=== PATIENT | female | born 1940 | race Caucasian/White ===

== ENCOUNTER → 2016-05-11 | Outpatient (CLI) | payer MEDICARE, OTHER ==
[~2016-05-11] MED LIST: ASPIRIN (CHILDR81 MG PO; BACTRIM DS1 TAB PO; CANNABIS OIL SL; CINNAMON500 MG PO; COLESTIPOL HCL1 GM PO; COMPAZINE 10MG10 MG PO; CRANBERRY400 M1 PO; DULCOLAX STOOL100 MG PO; EFFEXOR XR150 MG PO; EFFEXOR XR75 MG PO; FLONASE 50 MCG/16 GM NOSE; IMODIUM2 MG PO; KEFLEX500 MG PO; KLONOPIN0.5 MG PO; LEVOTHROID (SY88 MCG PO; LIPITOR40 MG PO; LOMOTIL1 TAB PO; MYRBETRIQ50 MG PO; NITROFURANTOIN50 MG PO; NORCO 5-325 TA1 EACH PO; NOVOLOG FL100 UNIT/1 SUB-Q; NOVOLOG100 UNIT/M SUB-Q; PLAVIX75 MG PO; PREMARIN0.3 MG PO; PRENATAL MULTI1 EAC3 PO; REFRESH PLUS1 EACH OPHTH; RESTASIS1 EACH OPHTH; SINGULAIR10 MG PO; SYSTANE 0.3-0.1 EACH OPHTH; SYSTANE 0.3-0.440 ML OPHTH; TEARS AGAIN EYE5 GM OPHTH; TOUJEO SOL300 UNIT/1 SUB-Q; TYLENOL ARTHRI650 MG PO; VITAMIN B-1000 MCG/M SUB-Q; VITAMIN D35000 UNI1 PO; ZYRTEC10 MG PO
[2016-05-11 12:54] LABS: HEMATOCRIT 39.6 % (33.0-46.0); HEMOGLOBIN 12.7 g/dL (10.0-15.0); MCH 30.2 pg (27.0-34.0); MCHC 32.1 gm/dL (32.0-36.5); MCV 94.3 fl (83.0-98.0); MPV 10.7 fl (9.4-12.4); RBC 4.2 M/uL (3.50-5.50); WBC 3.2 K/uL (4.0-11.0)
[2016-05-11 13:06] LABS: INR - (THERAPEUTIC) 1.1 (0.9-1.1); PROTIME 11.4 SECONDS (9.6-11.1)
[2016-05-11 13:07] LABS: ALBUMIN 3.6 gm/dL (3.5-5.0); ANION GAP 12.5 (10.0-19.0); BLOOD UREA NITROGEN 12 mg/dL (6-24); CHLORIDE 105 mMol/L (96-110); CO2 25 mMol/L (22-32); CREATININE 0.9 mg/dL (0.5-1.1); PHOSPHORUS 3.7 mg/dL (2.5-4.9); POTASSIUM 4.5 mMol/L (3.7-5.1); SODIUM 138 mMol/L (135-145)
[2016-05-11 13:10] LABS: ESTIMATED GFR (MDRD EQUATION) > 60
== END | disposition disaster alternative care site (69) ==
LOC: GOPD 05-05 10:30 → GRAD 11:45 → GOPD 12:00
PROVIDERS: Internal Medicine Critical Care Medicine
PROC: 0BBJ3ZX Excision of Left Lower Lung Lobe, Percutaneous Approach, Diagnostic (ICD-10-PCS; principal; 2016-05-11)
DX: R91.8 Other nonspecific abnormal finding of lung field (principal); J84.10 Pulmonary fibrosis, unspecified; K31.84 Gastroparesis; E11.43 Type 2 diabetes mellitus with diabetic autonomic (poly)neuropathy; Z79.4 Long term (current) use of insulin; Z87.891 Personal history of nicotine dependence
CPT/HCPCS: J2001; J2250; J3010

== ENCOUNTER 2016-05-19 12:40 | Inpatient (IN) | payer MEDICARE, OTHER ==
[~2016-05-19] VITALS: Ht 162.6 cm; Wt 60.2 kg
--- NOTE | ~2016-05-19 | CON ---
[facility] 76 Y [address] ROOM: [place] [address] LOCATION: GPCU ADMIT DATE: 05/19/2016 Consultation DISCHARGE DATE: FAMILY PHYSICIAN: Manuel Day MD ATTENDING PHYSICIAN: REMIGIO ESQUEDA DATE OF CONSULTATION: 05/20/2016 REFERRING PHYSICIAN: SARAH BRANDON MD CHIEF COMPLAINT: Amaurosis fugax. HISTORY OF PRESENT ILLNESS: A 76-year-old lady with a past medical history of hypertension,insulin- dependent diabetes, history of CVA, and carotid stenosis as well as severe emphysema, who was scheduled to undergo right carotid end arterectomy on June 02, 2016. Was at home ironing her clothes, when she has noticed blackening of her vision in the right eye. She waited until morning and called Vascular Surgery. She was brought to the OR after a CTA which did reveal right internal carotid artery stenosis about 90%. She underwent carotid endarterectomy. I saw her postoperatively. On my encounter, she is alert and oriented. She did endorse that she continues to have a black spot in her right eye and numbness on the right side of the face. She denied having any chest pain, any shortness of breath, any difficulty breathing, any palpitation, any abdominal pain, any extremity swelling, PND or orthopnea. On further inquiry, she denied having any burning on urination at this point. REVIEW OF SYSTEMS: All other systems were reviewed and were negative, except what is mentioned in the HPI. ALLERGIES: THE PATIENT IS ALLERGIC TO PENICILLIN. SOCIAL HISTORY: The patient quit smoking 30 years ago. No alcohol or drug use. FAMILY HISTORY: Family history is significant for leukemia in mother and in 4 of her uncles. Dad had Alzheimer's. PAST MEDICAL HISTORY: Insulin-dependent diabetes; history of gastroparesis, status post gastrectomy; severe emphysema; history of atrial fibrillation, not on any anticoagulation; history of CVA; lung nodule. PATIENT'S NAME: ELIJAH DHILLON [facility] AGE: 76 Y [address] ROOM: [place] [address] LOCATION: GPCU ADMIT DATE: 05/19/2016 Consultation DISCHARGE DATE: FAMILY PHYSICIAN: Manuel Day MD ATTENDING PHYSICIAN: REMIGIO ESQUEDA MEDICATIONS: Please see MAR. PHYSICAL EXAMINATION: VITAL SIGNS: 136/76, 16, 101, afebrile. GENERAL: In no acute distress. Alert and oriented x3. HEENT: Head, atraumatic and normocephalic. Eyes are nonicteric. No pallor. Oropharynx: Dry mucous membranes. NECK: Right-sided Pierce wrap, post surgical. CARDIOVASCULAR: S1 and S2. Systolic ejection murmur at the aortic region. RESPIRATORY: Decreased breath sounds on the left bases. No expiratory wheezes noted. ABDOMEN: Soft, nontender, nondistended. Bowel sounds are present. EXTREMITIES: No clubbing, cyanosis, or edema. PSYCH: Normal affect, mood, and speech. NEUROLOGICAL: On eye exam, right-side vision, 20/30; left-side, 20/20. Absent sensations on the right side of the face. Rest of the cranial nerves are unremarkable. No motor or sensory deficits in the extremity noted. SKIN: No bruises or rashes noted. LABORATORY WORK: Glucose Accu-Chek 263. White count 3.8, hemoglobin 11.5, platelets 127. BUN 14, creatinine 0.8, potassium 4.5. GFR greater than 60. INR 1.1. CTA as described above showed right-sided stenosis of the internal carotid artery with 90%. It also incidentally showed moderate left-sided pleural effusion. ASSESSMENT/PLAN: 1. Amaurosis fugax. 2. Internal carotid artery stenosis, right side, status post carotid endarterectomy. 3. Hypertension. 4. Insulin-dependent diabetes mellitus. 5. Chronic obstructive pulmonary disease. 6. History of cerebrovascular accident. 7. Left-sided small pleural effusion and lung nodule which needs to be followed. PLAN: We are going to restart home medications. We would recommend starting Plavix if okay with Vascular Surgery. We would recommend considering Neurology consultation in the morning. Ultrasonography in the morning for the evaluation of this pleural effusion. DVT prophylaxis per Vascular Surgery. Thank you for allowing us in taking care of this patient. We will follow PATIENT'S NAME: ELIJAH DHILLON [facility] AGE: 76 Y [address] ROOM: [place] [address] LOCATION: GPCU ADMIT DATE: 05/19/2016 Consultation DISCHARGE DATE: FAMILY PHYSICIAN: Manuel Day MD ATTENDING PHYSICIAN: REMIGIO ESQUEDA. SARAH BRANDON MD ARYA/modl /[id number] d: 05/20/16 0129 t: 05/20/16 0220, CONSULTATION REPORT
--- NOTE | ~2016-05-19 | DS ---
PATIENT'S NAME: ELIJAH DHILLON [facility] AGE: 76 Y [address] ROOM: [place] [address] LOCATION: GPCU ADMIT DATE: 05/19/2016 Discharge Summary DISCHARGE DATE: 05/22/2016 FAMILY PHYSICIAN: Manuel Day MD ATTENDING PHYSICIAN: Liam Solis FINAL DIAGNOSIS: Right high-grade internal carotid artery stenosis. SECONDARY DIAGNOSES: 1. Amaurosis fugax. 2. Insulin-dependent diabetes. 3. Chronic obstructive pulmonary disease. 4. Essential hypertension. 5. Left-sided pleural effusion and lung nodule. PROCEDURES: Right carotid endarterectomy with bovine patch by Dr. Solis on 05/19/2016. CONSULTATIONS: 1. Hospitalist for medication management. 2. Dr. Day, per the patient's request for diabetes control. HOSPITAL COURSE: This is a 76-year-old female, admitted to [facility] on postop day #0 after right carotid endarterectomy. The patient with a known history of right internal carotid artery stenosis and was planned for a right carotid endarterectomy at the end of May. However, she developed amaurosis fugax and reported her concerns to her eye doctor. She immediately got in touch with [facility] and was instructed to present to the [facility] Emergency Room for CTA of her head and carotids. The CTA was negative of the head and the patient experienced no further stroke symptoms. The patient was taken to the operating room from the emergency room on 05/19/2016. See patient's history and physical for full patient details. The patient tolerated the procedure well and after the recovery was transferred to the progressive care unit for monitoring of neurological status, telemetry, labs, vital signs, surgical incision as well as receiving nursing assistance and medication administration. On postop day #1, Cannon was discontinued along with IV fluids and arterial line. Her glucose was found to be elevated and the patient requested to be seen by Dr. Day for diabetes management. Neurologically, the patient remained intact and the surgical site was clean without infection or any signs of hematoma. The patient requested to stay for strengthening as well as managing her headache. On postop day #2, the patient received Toradol as well as Fioricet for headache. On postop day #3, the patient was found in a stable condition and was discharged home with headache improved. Surgical site remained stable and no complications from surgery. PATIENT'S NAME: ELIJAH DHILLON [facility] AGE: 76 Y [address] ROOM: [id number] [place], [place] [address] LOCATION: GPCU ADMIT DATE: 05/19/2016 Discharge Summary DISCHARGE DATE: 05/22/2016 FAMILY PHYSICIAN: Manuel Day MD ATTENDING PHYSICIAN: Liam Solis DISCHARGE ORDERS: The patient is discharged to home. She is to continue her diabetic diet. No heavy lifting or driving for 2 weeks. She is to follow up with Jaylene Almaguer APRN, at [facility] in 2 weeks. She is to report any signs or symptoms of infection including fevers, chills, drainage from the wound, swelling, or redness. She is also to report any signs or symptoms of TIA or stroke including changes in vision, speech, or strength. DISCHARGE MEDICATIONS: 1. Nitrofurantoin 50 mg p.o. every night at bedtime. 2. Singulair 10 mg p.o. every night at bedtime. 3. Plavix 75 mg p.o. daily. 4. Lipitor 40 mg p.o. daily. 5. Premarin 0.3 mg p.o. daily. 6. Clonazepam 0.25 mg p.o. daily. 7. Effexor XR 75 mg p.o. every morning. Effexor XR 150 mg p.o. every morning to total 225 mg. 8. Vitamin D3, 2000 units p.o. twice daily. 9. Compazine 10 mg p.o. every 8 hours as needed for nausea. 10. Lomotil 1 tablet p.o. every 4 hours as needed. 11. Levothroid 88 mcg p.o. daily. 12. Flonase 1 spray nasally twice daily. 13. Vitamin B12, 1000 mcg subcutaneous every 30 days. 14. NovoLog 1 dose subcutaneous before meals and at bedtime as needed per moderate sliding scale. 15. Toujeo 28 units subcutaneously every night at bedtime. 16. Cranberry tablet 400 mg p.o. twice daily. 17. Restasis 1 drop ophthalmic 4 times daily. 18. Acetaminophen tablet ER 650 mg p.o. every 6 hours as needed for pain. 19. Docusate sodium 100 mg p.o. daily as needed for constipation. 20. Burket 5/325 one to two tablets p.o. every 4 hours needed for pain. 21. Artificial tears ointment 0.25 every night at bedtime. 22. Refresh Plus 1 to 2 drops ophthalmic 3 times daily. DISPOSITION: The patient is discharged home in stable condition. The patient verbalized understanding of the plan. She is to follow discharge orders as prescribed. The patient is discharged with education about surgical site care, medications, prescriptions, diet, activity, and followup appointments. The patient is to follow discharge orders as prescribed. JAYLENE ALMAGUER APRN FOR LIAM SOLIS MD PATIENT'S NAME: ELIJAH DHILLON [facility] AGE: 76 Y [address] ROOM: [place] [address] [facility] AD[facility]: 05/19/2016 Discharge Summary DISCHARGE DATE: 05/22/2016 FAMILY PHYSICIAN: Manuel Day MD ATTENDING PHYSICIAN: Liam Solis TO/stephen /[id number] d: 05/25/16 0230 t: 05/25/16 1031, DISCHARGE SUMMARY
--- NOTE | ~2016-05-19 | OR ---
PATIENT'S NAME: ELIJAH DHILLON [facility] AGE: 76 Y [address] ROOM: [address] [address] LOCATION: GPCU ADMIT DATE: 05/19/2016 OR/Procedure Report DISCHARGE DATE: FAMILY PHYSICIAN: Manuel Day MD ATTENDING PHYSICIAN: LIAM SOLIS SURGEON: Liam Solis MD COMPLIANCE ASSISTANT: DATE OF PROCEDURE: 05/19/2016 PREOPERATIVE DIAGNOSIS: Symptomatic right internal carotid artery stenosis. POSTOPERATIVE DIAGNOSIS: Symptomatic right internal carotid artery stenosis. PROCEDURE: Right carotid endarterectomy with bovine pericardial patch. LEAN SIX SIGMA SENIOR SPECIALIST: BHAVIK Maynard. ANESTHESIA: General. ESTIMATED FLUID LOSS: 150 mL. FINDINGS: 1. High-grade, heavily calcified, near occlusive lesion of the right ICA. 2. Neurologically intact at the end of case. DESCRIPTION OF PROCEDURE: The patient was brought to the operating room, placed supine on the operating table, and prepped and draped in a sterile manner. Preoperative time-out was performed. The patient received preoperative antibiotics in the form of clindamycin. We made a standard incision along the anterior border of the sternocleidomastoid on the right, transected the platysma, and dissected the soft areolar tissue on the anterior border of the muscle. We then dissected out the internal jugular along its length, identified the facial vein, ligated and transected it. We then dissected out the common, the external, and the internal. The superior thyroid had to be ligated and transected because the arteries were transposed; in order to flip the artery back in its correct position, we had to ligate this artery. We then gave 5000 units of heparin. We then clamped on all 3 major vessels and made arteriotomy with 11 blade extending from the common to the internal using Beck scissors. We then passed a 5 x 3 Sundt shunt. Flow was confirmed using Doppler. We removed the plaque in its entirety, and then meticulously identified any small areas of plaque that had to be further removed. We then did a standard 6-0 [place] bovine pericardial patch. Before completing the patch, we clamped and removed the shunt. We allowed for back flow from the internal as well as forward flow from the common. We allowed both of them to flush. We then completed the anastomosis. We removed the PATIENT'S NAME: ELIJAH DHILLON [facility] AGE: 76 Y [address] ROOM: [place] [address] [facility] AD[facility] DATE: 05/19/2016 OR/Procedure Report DISCHARGE DATE: FAMILY PHYSICIAN: Manuel Day MD ATTENDING PHYSICIAN: LIAM SOLIS clamps from the external and the common. We waited 10 heartbeats and then removed the clamp from the internal. We used Doppler to confirm flow in all 3 vessels. We used protamine for reversal of heparin, thrombin in the wound. Any other areas of leakage of the patch were repaired with 6-0 Prolene. The layers were closed with 2-0 and 3-0 Vicryl. Skin was closed with running 4-0 Monocryl. The patient tolerated the procedure well and was transferred to the recovery room and then up to the floor. LIAM SOLIS MD FKM/modl /[id number] d: 05/20/16 0028 t: 05/20/16 1011, OPERATIVE SUMMARY
--- NOTE | ~2016-05-19 | ER ---
PATIENT'S NAME: ELIJAH DHILLON [facility] AGE: 76 Y [address] ROOM: [place] [address] LOCATION: GPCU ADMIT DATE: 05/19/2016 ER/Outpatient Report DISCHARGE DATE: FAMILY PHYSICIAN: Manuel Day MD ATTENDING PHYSICIAN: LIAM SOLIS CHIEF COMPLAINT: Vision changes. HISTORY OF PRESENT ILLNESS: The patient states that yesterday evening around 6 o'clock she had acute change with loss of vision on the right eye on the bottom half of her visual field towards the side. She has never had anything like this before. It lasted about 10-15 minutes and then began to improve. This morning, it is still there and she feels like it is coming back and it raises from the bottom right up towards the top left, but is mostly horizontal when she tries to describe it. She describes it as a black curtain and states that the rest of her vision is completely normal. She has never had anything like this and does not have any significant other issues. She has severe carotid disease on the right side and moderate disease on the left. She is coming in at the urging of Dr. Liam Solis, vascular surgeon, and his team for further evaluation as this appears to be amaurosis fugax. PAST MEDICAL HISTORY: Documented on the record and reviewed by me. SOCIAL HISTORY: Documented on the record and reviewed by me. MEDICATIONS: Documented on the record and reviewed by me. ALLERGIES: DOCUMENTED ON THE RECORD AND REVIEWED BY ME. REVIEW OF SYSTEMS: All systems were reviewed and negative except as noted in the HPI. PHYSICAL EXAMINATION: VITAL SIGNS: Blood pressure 155/67, pulse 75, respiratory rate is 16, temperature 97.8, and SpO2 is 100% on room air. Pain 0/10. GENERAL: Age appropriate female, in no obvious pain or distress, resting comfortably on exam table. HEENT: Normocephalic, atraumatic. The eyes are PERRL. Extraocular movements are intact without nystagmus. Visual wright, there is a slight cut to the PATIENT'S NAME: ELIJAH DHILLON [facility] AGE: 76 Y [address] ROOM: [place] [address] LOCATION: GPCU ADMIT DATE: 05/19/2016 ER/Outpatient Report DISCHARGE DATE: FAMILY PHYSICIAN: Manuel Day MD ATTENDING PHYSICIAN: LIAM SOLIS visual field on the inferotemporal aspect with some medial involvement of the right eye, but otherwise intact. Vision otherwise grossly intact. Oropharynx is moist and clear. NECK: Supple. Trachea is midline. There is a carotid bruit on the left with no bruit on the right. CHEST/HEART: Regular rate and rhythm with no murmurs. LUNGS: Clear to auscultation bilateral with no rhonchi, wheezes, or rales. ABDOMEN: Soft, nontender, and nondistended. No rebound or guarding. BACK: Nontender to palpation. No CVA tenderness. EXTREMITIES: Warm and well perfused with no obvious abnormalities or edema. SKIN: Without obvious breakdown. LABS AND X-RAYS: Head CT without any acute changes. CTA of the neck without any acute changes and with severe stenosis of the right ICA according to Radiology. Labs: WBC is 3.8, hemoglobin 11.5, platelets 127. INR is 1.1. Sodium is 139, potassium 4.5, chloride 106, CO2 is 24, BUN is 14, creatinine 0.8, and GFR is greater than 60. LFTs: AST is elevated at 78. CRP is below threshold. EKG reveals sinus rhythm with normal intervals and axis. No signs of acute ischemia. No immediate comparison available. ESR is 36. ED COURSE: The patient was evaluated as above. Her presentation is not consistent with retinal detachment, is more consistent with amaurosis fugax secondary to carotid insufficiency. The fluctuating course speaks more to that aspect. She also likely does not have a stroke given the fluctuating symptoms. We obtained imaging with consultation with Dr. Solis, vascular surgeon. The patient will be taken to the operating room for carotid endarterectomy from the emergency department. She did have a slight headache which we deferred treatment on to ensure we were not having any neurologic changes which were stable and she is going directly to general anesthesia. She remained otherwise stable in the emergency department, was admitted to Dr. Solis's team to the operating room for further intervention for her severe carotid stenosis as a presumed cause of her decreased vision. Her physical exam and symptoms are not consistent with temporal giant cell arteritis. MD NENA ATKINS/stephen PATIENT'S NAME: ELIJAH DHILLON [facility] AGE: 76 Y [address] ROOM: [place] [address] LOCATION: [facility] ADMIT DATE: 05/19/2016 ER/Outpatient Report DISCHARGE DATE: FAMILY PHYSICIAN: Manuel Day MD ATTENDING PHYSICIAN: LIAM SOLIS /[id number] d: 05/19/162120 t: 05/23/16 173, OUTPATIENT REPORT
[~2016-05-19 12:40] MED LIST changes: -ASPIRIN (CHILDR81 MG PO; -BACTRIM DS1 TAB PO; -CANNABIS OIL SL; -CINNAMON500 MG PO; -COLESTIPOL HCL1 GM PO; -CRANBERRY400 M1 PO; -DULCOLAX STOOL100 MG PO; -IMODIUM2 MG PO; -KEFLEX500 MG PO; -MYRBETRIQ50 MG PO; -NORCO 5-325 TA1 EACH PO; -NOVOLOG100 UNIT/M SUB-Q; -PRENATAL MULTI1 EAC3 PO; -REFRESH PLUS1 EACH OPHTH; -RESTASIS1 EACH OPHTH; -SYSTANE 0.3-0.1 EACH OPHTH; -SYSTANE 0.3-0.440 ML OPHTH; -TEARS AGAIN EYE5 GM OPHTH; -TYLENOL ARTHRI650 MG PO; -ZYRTEC10 MG PO
[2016-05-19 13:19] LABS: EOSINOPHIL % 0.3 %; HEMATOCRIT 35.8 % (33.0-46.0); HEMOGLOBIN 11.5 g/dL (10.0-15.0); IMMATURE GRANULOCYTE % 0.8 %; LYMPHOCYTE # 2.1 K/uL (0.8-4.0); LYMPHOCYTE % 54.2 %; MCHC 32.1 gm/dL (32.0-36.5); MCV 93.5 fl (83.0-98.0); MONOCYTE # 0.4 K/uL (0.0-1.0); MONOCYTE % 10.6 %; MPV 11.4 fl (9.4-12.4); NEUTROPHIL # (ANC) 1.3 K/uL (1.8-7.8); NEUTROPHIL % 34.1 %; NRBC % 0 /100WBC (0-0.00); PLATELET COUNT 127 K/uL (150-450); RBC 3.83 M/uL (3.50-5.50); RDW-CV 15.4 % (11.9-14.6); WBC 3.8 K/uL (4.0-11.0)
[2016-05-19 13:28] LABS: INR - (THERAPEUTIC) 1.1 (0.9-1.1); PROTIME 11.2 SECONDS (9.6-11.1); PTT 28 SECONDS (25-32)
[2016-05-19 13:36] LABS: ALBUMIN 3.6 gm/dL (3.5-5.0); ALK PHOS 110 IU/L (33-138); ALT 56 IU/L (12-78); BLOOD UREA NITROGEN 14 mg/dL (6-24); CALCIUM 8.6 mg/dL (8.5-10.5); CHLORIDE 106 mMol/L (96-110); CO2 24 mMol/L (22-32); CREATININE 0.8 mg/dL (0.5-1.1); ESTIMATED GFR (MDRD EQUATION) > 60; SODIUM 139 mMol/L (135-145); TOTAL BILIRUBIN 0.8 mg/dL (0.0-1.5); TOTAL PROTEIN 7.7 g/dL (6.0-8.4)
[2016-05-19 13:38] LABS: ANION GAP 13.5 (10.0-19.0); AST 78 IU/L (10-40)
[2016-05-19 13:39] LABS: POTASSIUM 4.5 mMol/L (3.7-5.1)
[2016-05-20] MEDS ORDERED: CRANBERRY400 M1 PO (00:38)
[2016-05-20] MEDS ORDERED: RESTASIS1 EACH OPHTH (00:40)
[2016-05-20 05:05] LABS: ANION GAP 14.6 (10.0-19.0); BLOOD UREA NITROGEN 14 mg/dL (6-24); CHLORIDE 107 mMol/L (96-110); CO2 22 mMol/L (22-32); CREATININE 0.8 mg/dL (0.5-1.1); ESTIMATED GFR (MDRD EQUATION) > 60; POTASSIUM 4.6 mMol/L (3.7-5.1); SODIUM 139 mMol/L (135-145)
[2016-05-20 05:13] LABS: HEMATOCRIT 31.7 % (33.0-46.0); HEMOGLOBIN 10.1 g/dL (10.0-15.0); IMMATURE GRANULOCYTE # 0.1 K/uL (0.0-0.3); IMMATURE GRANULOCYTE % 2.6 %; LYMPHOCYTE # 0.5 K/uL (0.8-4.0); LYMPHOCYTE % 16.8 %; MCH 30.2 pg (27.0-34.0); MCHC 31.9 gm/dL (32.0-36.5); MCV 94.9 fl (83.0-98.0); MONOCYTE # 0.3 K/uL (0.0-1.0); MONOCYTE % 8.7 %; MPV 10.7 fl (9.4-12.4); NEUTROPHIL # (ANC) 2.2 K/uL (1.8-7.8); NEUTROPHIL % 71.9 %; NRBC % 0 /100WBC (0-0.00); PLATELET COUNT 116 K/uL (150-450); RBC 3.34 M/uL (3.50-5.50); RDW-CV 15.6 % (11.9-14.6); WBC 3.1 K/uL (4.0-11.0)
[2016-05-20] MEDS ORDERED: TYLENOL ARTHRI650 MG PO (12:22)
[2016-05-20] MEDS ORDERED: DULCOLAX STOOL100 MG PO (12:29)
[2016-05-22 04:12] LABS: ALBUMIN 3.1 gm/dL (3.5-5.0); ANION GAP 15.2 (10.0-19.0); BLOOD UREA NITROGEN 8 mg/dL (6-24); CALCIUM 8.6 mg/dL (8.5-10.5); CHLORIDE 107 mMol/L (96-110); CO2 23 mMol/L (22-32); CREATININE 0.7 mg/dL (0.5-1.1); ESTIMATED GFR (MDRD EQUATION) > 60; PHOSPHORUS 3.1 mg/dL (2.5-4.9); SODIUM 141 mMol/L (135-145)
[2016-05-22 04:15] LABS: POTASSIUM 4.2 mMol/L (3.7-5.1)
[2016-05-22] MEDS ORDERED: NORCO 5-325 TA1 EACH PO (12:18)
[2016-05-22] MEDS ORDERED: TEARS AGAIN EYE5 GM OPHTH (12:20)
[2016-05-22] MEDS ORDERED: REFRESH PLUS1 EACH OPHTH (12:21)
[2016-10-12] MEDS ORDERED: SYSTANE 0.3-0.440 ML OPHTH (09:56)
[2016-10-12] MEDS ORDERED: NOVOLOG100 UNIT/M SUB-Q (15:36)
[2016-10-12] MEDS ORDERED: ZYRTEC10 MG PO (15:39)
[2016-10-12] MEDS ORDERED: MYRBETRIQ50 MG PO (15:40)
[2016-10-12] MEDS ORDERED: BACTRIM DS1 TAB PO (15:43)
[2016-10-12] MEDS ORDERED: LEVOTHROID (SY88 MCG PO (15:46)
[2016-10-12] MEDS ORDERED: COLESTIPOL HCL1 GM PO (15:48)
[2016-10-12] MEDS ORDERED: PRENATAL MULTI1 EAC3 PO (15:50)
[2016-10-12] MEDS ORDERED: CINNAMON500 MG PO (15:52)
[2016-10-12] MEDS ORDERED: CANNABIS OIL SL (15:54)
[2016-10-12] MEDS ORDERED: SYSTANE 0.3-0.1 EACH OPHTH (15:55)
[2016-10-12] MEDS ORDERED: IMODIUM2 MG PO (15:58)
[2016-10-20] MEDS ORDERED: ASPIRIN (CHILDR81 MG PO (08:06)
[2016-10-20] MEDS ORDERED: KEFLEX500 MG PO (08:10)
== END 2016-05-22 13:01 | disposition disaster alternative care site (69) | DRG 982 ==
LOC: GMED 12:40 → GPCU 15:37
PROVIDERS: Emergency Medicine; Internal Medicine; ADMIT Surgery Vascular Surgery
PROC: 03CK0ZZ Extirpation of Matter from Right Internal Carotid Artery, Open Approach (ICD-10-PCS; principal; 2016-05-19)
PROC: 03UK0KZ Supplement Right Internal Carotid Artery with Nonautologous Tissue Substitute, Open Approach (ICD-10-PCS; 2016-05-19)
DX: H34.01 Transient retinal artery occlusion, right eye (principal); J90 Pleural effusion, not elsewhere classified; J44.9 Chronic obstructive pulmonary disease, unspecified; I10 Essential (primary) hypertension; E11.9 Type 2 diabetes mellitus without complications; R91.8 Other nonspecific abnormal finding of lung field; K21.9 Gastro-esophageal reflux disease without esophagitis; F41.9 Anxiety disorder, unspecified; Z87.891 Personal history of nicotine dependence; Z86.73 Personal history of transient ischemic attack (TIA), and cerebral infarction without residual deficits; R91.1 Solitary pulmonary nodule
CPT/HCPCS: C1751; J0690; J1100; J1644; J1650; J1885; J2405; J2720; J3010; J3480; J7030; J7050; Q9967

== ENCOUNTER → 2016-09-14 | Outpatient (CLI) | payer MEDICARE, OTHER ==
[~2016-09-14] MED LIST changes: +ASPIRIN (CHILDR81 MG PO; +BACTRIM DS1 TAB PO; +CANNABIS OIL SL; +CINNAMON500 MG PO; +COLESTIPOL HCL1 GM PO; +CRANBERRY400 M1 PO; +DULCOLAX STOOL100 MG PO; +IMODIUM2 MG PO; +KEFLEX500 MG PO; +MYRBETRIQ50 MG PO; +NORCO 5-325 TA1 EACH PO; +NOVOLOG100 UNIT/M SUB-Q; +PRENATAL MULTI1 EAC3 PO; +REFRESH PLUS1 EACH OPHTH; +RESTASIS1 EACH OPHTH; +SYSTANE 0.3-0.1 EACH OPHTH; +SYSTANE 0.3-0.440 ML OPHTH; +TEARS AGAIN EYE5 GM OPHTH; +TYLENOL ARTHRI650 MG PO; +ZYRTEC10 MG PO
== END | disposition disaster alternative care site (69) ==
LOC: GBCOE 08:57
DX: Z12.31 Encounter for screening mammogram for malignant neoplasm of breast (principal)
CPT/HCPCS: G0202

== ENCOUNTER → 2016-10-10 | Outpatient (CLI) | payer MEDICARE, OTHER | END | disposition disaster alternative care site (69) | LOC: GRAD 07:15 | DX: R13.10 Dysphagia, unspecified (principal); K22.4 Dyskinesia of esophagus ==

== ENCOUNTER → 2016-10-20 | Day surgery (SDC) | payer MEDICARE, OTHER ==
[~2016-10-20] VITALS: Ht 162.6 cm; Wt 64.6 kg
== END ==
LOC: GPOC 10-12 13:00 → GEND 07:49
PROC: 0DB88ZX Excision of Small Intestine, Via Natural or Artificial Opening Endoscopic, Diagnostic (ICD-10-PCS; principal; 2016-10-20)
PROC: 0DB58ZX Excision of Esophagus, Via Natural or Artificial Opening Endoscopic, Diagnostic (ICD-10-PCS; 2016-10-20)
PROC: 0D758ZZ Dilation of Esophagus, Via Natural or Artificial Opening Endoscopic (ICD-10-PCS; 2016-10-20)
DX: K22.8 Other specified diseases of esophagus (principal); E78.00 Pure hypercholesterolemia, unspecified; I10 Essential (primary) hypertension; I25.2 Old myocardial infarction; J18.9 Pneumonia, unspecified organism; J32.9 Chronic sinusitis, unspecified; J45.909 Unspecified asthma, uncomplicated; Z90.710 Acquired absence of both cervix and uterus; Z98.41 Cataract extraction status, right eye; Z98.42 Cataract extraction status, left eye; Z90.49 Acquired absence of other specified parts of digestive tract; Z88.0 Allergy status to penicillin; Z88.8 Allergy status to other drugs, medicaments and biological substances; Z87.891 Personal history of nicotine dependence
CPT/HCPCS: C1726; J2001; J7030